=== PATIENT | female | born 1990 | race Caucasian/White ===

== ENCOUNTER 2016-05-09 16:37 | Emergency (ER) | payer MEDICAID ==
[~2016-05-09] VITALS: Ht 157.5 cm; Wt 54.1 kg
[2016-05-09 20:52] VITALS: BP 120/78
== END 2016-05-09 20:52 | disposition left against medical advice (07) ==
LOC: ED 16:37
DX: Z53.21 Procedure and treatment not carried out due to patient leaving prior to being seen by health care provider (principal)

== ENCOUNTER 2017-03-13 18:53 | Emergency (ER) | payer MEDICAID ==
[2017-03-13 19:00] VITALS: BP 111/75
== END 2017-03-13 22:49 | disposition left against medical advice (07) ==
LOC: ED 18:53
DX: R51 Headache (principal); R42 Dizziness and giddiness
CPT/HCPCS: J1885; J8597; Q0163

== ENCOUNTER 2017-05-25 18:00 | Emergency (ER) | payer MEDICAID ==
[~2017-05-25] VITALS: Ht 160 cm; Wt 55.3 kg
[2017-05-25 18:15] VITALS: Ht 160 cm; Wt 55.3 kg
[2017-05-25 21:42] LABS: microscopic required? YES; urine erythrocyte 1+ (NEGATIVE)
[2017-05-25 21:46] LABS: BASOPHIL % 0.2 % (0-2); RED CELL DISTRIBUTION WIDTH 13.1 % (11.5-14.5)
[2017-05-25 21:49] LABS: PLATELET COUNT 126 x10^3mcL (130-400)
[2017-05-25 21:58] LABS: CALCIUM 9.2 mg/dL (8.5-10.1); CHLORIDE SERUM 101 mmol/L (98-107); CREATININE SERUM 0.5 mg/dL (0.6-1.0); GFR1 > 60 mL/min; GLUCOSE SERUM 83 mg/dL (74-106); POTASSIUM SERUM 3.2 mmol/L (3.5-5.1); SODIUM SERUM 138 mmol/L (136-145)
[2017-05-25 22:10] LABS: ALBUMIN 3.8 g/dL (3.4-5.0); ALKALINE PHOSPHATASE 59 U/L (46-116); ALT/SGPT 40 U/L (14-59); AST/SGOT 17 U/L (15-37); BILIRUBIN TOTAL 0.76 mg/dL (0.20-1.00); LIPASE 150 IU/L (73-393)
[2017-05-25 22:11] LABS: TOTAL PROTEIN, SERUM 8.3 g/dL (6.4-8.2)
[2017-05-26 05:58] VITALS: BP 104/75
== END 2017-05-26 06:03 | disposition home or self-care (01) ==
LOC: ED 18:00
PROVIDERS: Emergency Medicine
DX: N39.0 Urinary tract infection, site not specified (principal); E87.6 Hypokalemia
CPT/HCPCS: J2270; Q0162; Q9967

== ENCOUNTER 2018-02-26 13:30 | Emergency (ER) | payer MEDICAID ==
[~2018-02-26] VITALS: Ht 157.5 cm; Wt 58.5 kg
[2018-02-26 14:12] VITALS: Ht 157.5 cm; Wt 58.5 kg
[2018-02-26 15:18] LABS: microscopic required? YES; urine erythrocyte 1+ (NEGATIVE)
[2018-02-26 18:30] VITALS: BP 107/78
== END 2018-02-26 18:30 | disposition home or self-care (01) ==
LOC: ED 13:30
PROVIDERS: Emergency Medicine
DX: N39.0 Urinary tract infection, site not specified (principal); N76.0 Acute vaginitis
CPT/HCPCS: 87491; 87591; J0696; Q0162

== ENCOUNTER 2018-08-05 13:52 | Emergency (ER) | payer MEDICAID ==
[~2018-08-05] VITALS: Ht 157.5 cm; Wt 58.5 kg
[2018-08-05 14:05] VITALS: Ht 157.5 cm; Wt 58.5 kg
[2018-08-05 15:57] VITALS: BP 105/71
== END 2018-08-05 15:57 | disposition home or self-care (01) ==
LOC: ED 13:52
DX: M79.10 Myalgia, unspecified site (principal); F41.9 Anxiety disorder, unspecified; Z86.39 Personal history of other endocrine, nutritional and metabolic disease; Z98.890 Other specified postprocedural states